=== PATIENT | male | born 1985 | race Caucasian/White ===

== ENCOUNTER 2018-04-05 12:43 | Emergency (ER) | payer MEDICAID ==
--- NOTE | 2018-04-05 13:24 | EDPHY ---
H & P Stated Complaint: Pt had transient chest palpitation [employer], gone, c/o bilat hand tingle Time Seen by Provider: 04/05/18 13:01 HPI/ROS: CHIEF COMPLAINT: Palpitations and tingling HISTORY OF PRESENT ILLNESS: Patient is a 32-year-old man with no significant medical history who presents to the emergency department about 2-3 hours after he had a very brief episode of palpitations. He is not very concerned about them. No shortness of breath. No nausea. No diaphoresis. Whose while he was at rest. He then however began to develop paresthesias in both hands and in his left 2nd toe. These seem to fluctuate. They are now gone. No trauma. He did have an upper respiratory tract infection last week. This is since resolved. No fevers. No cough or shortness of breath. He is a smoker. No recent travel. No leg pain or swelling. Palpitations are not pleuritic and do not change with movement. Severity: Moderate Modifying factors: Resolved spontaneously REVIEW OF SYSTEMS: Constitutional: denies: chills, fever, recent illness, recent injury EENTM: denies: blurred vision, double vision, nose congestion Respiratory: denies: cough, shortness of breath Cardiac: denies: chest pain, irregular heart rate, lightheadedness, palpitations Gastrointestinal/Abdominal: denies: abdominal pain, diarrhea, nausea, vomiting, blood streaked stools Genitourinary: denies: dysuria, frequency, hematuria, pain Musculoskeletal: denies: joint pain, muscle pain Skin: denies: lesions, rash, jaundice, bruising Neurological: denies: headache, numbness, paresthesia, tingling, dizziness, weakness Hematologic/Lymphatic: denies: blood clots, easy bleeding, easy bruising Immunologic/allergic: denies: HIV/AIDS, transplant 10 systems reviewed and negative except as noted EXAM: GENERAL: Well-appearing, well-nourished and in no acute distress. HEAD: Atraumatic, normocephalic. EYES: Pupils equal round and reactive to light, extraocular movements intact, sclera anicteric, conjunctiva are normal. ENT: TMs normal, nares patent, oropharynx clear without exudates. Moist mucous membranes. NECK: Normal range of motion, supple without lymphadenopathy or JVD. LUNGS: Breath sounds clear to auscultation bilaterally and equal. No wheezes rales or rhonchi. HEART: Regular rate and rhythm without murmurs, rubs or gallops. ABDOMEN: Soft, nontender, normoactive bowel sounds. No guarding, no rebound. No masses appreciated. BACK: No CVA tenderness, no spinal tenderness, step-offs or deformities EXTREMITIES: Normal range of motion, no pitting or edema. No clubbing or cyanosis. NEUROLOGICAL: Cranial nerves II through XII grossly intact. Normal speech, normal gait. 5/5 strength, normal movement in all extremities, normal sensation , normal reflexes PSYCH: Normal mood, normal affect. SKIN: Warm, dry, normal turgor, no visible rashes or lesions. Source: Patient Exam Limitations: No limitations - Personal History Current Tetanus/Diphtheria Vaccine: Yes - Medical/Surgical History Hx Asthma: No Hx Chronic Respiratory Disease: No Hx Diabetes: No Hx Cardiac Disease: No Hx Renal Disease: No Hx Cirrhosis: No Hx Alcoholism: No Hx HIV/AIDS: No Hx Splenectomy or Spleen Trauma: No Other PMH: Anxiety, ortho Sx. - Social History Smoking Status: Heavy smoker Constitutional: Initial Vital Signs Temperature (C) 36.4 C 04/05/18 12:44 Heart Rate 105 H 04/05/18 12:44 Respiratory Rate 18 04/05/18 12:44 Blood Pressure 151/104 H 04/05/18 12:44 O2 Sat (%) 97 04/05/18 12:44 O2 Delivery Mode Room Air Allergies/Adverse Reactions: No Known Allergies Allergy (Unverified 04/05/18 12:44) Medical Decision Making - Diagnostics EKG Interpretation: An EKG obtained and was read and documented in trace view. Please see trace view for full reading and report. Sinus rhythm. Nonspecific T-wave abnormalities inferior leads, no acute ischemic changes ED Course/Re-evaluation: The patient has very minimal risk factors however he is a smoker. We discussed his EKG which is reassuring. His paresthesias are likely more due to anxiety. I told him that his symptoms are most likely due to anxiety but that there is certainly a small chance it could be a cardiac or electrolyte abnormality or PE. He initially told me that he would like to complete a workup because he recently had a friend of a friend who of a "clogged artery" at the age of 34. He states that he does not want to wake up dad. We agreed to perform lab work and x-ray however he then began asking about the cost and told me that he is uninsured. [facility] and being seen in the emergency department. After several repeat discussions between the nurse and myself the patient the patient ultimately decided not to perform any further testing. He feels reassured and would rather return home with his sister. We discussed indications for returning. Differential Diagnosis: Partial list of the Differential diagnosis considered include but were not limited to; anxiety, arrhythmia, palpitations, caffeine reaction and although unlikely based on the history and physical exam, I also considered acute coronary disease PE, infection, pericarditis. I discussed these differential diagnoses and the plan with the patient as well as the usual and expected course. The patient understands that the diagnosis is provisional and that in medicine we are not always correct and that further workup is often warranted. Usual and customary warnings were given. All of the patient's questions were answered. The patient was instructed to return to the emergency department should the symptoms at all worsen or return, otherwise to followup with the physician as we discussed. Departure - Departure Disposition: Home, Routine, Self-Care Clinical Impression: Palpitations, Paresthesia, Anxiety Condition: Fair Instructions: Heart Palpitations (ED), Paresthesia (ED) Referrals: NONE *PRIMARY CARE P,. [Primary Care Provider] - As per Instructions [facility],. [Clinic] - As per Instructions Ailyn Hall MD [Medical Doctor] - 3-4 days, if not improved
--- NOTE | 2018-04-05 13:25 | CPEKG ---
Test Reason : OPEN Blood Pressure : / mmHG Vent. Rate : 077 BPM Atrial Rate : 077 BPM P-R Int : 113 ms QRS Dur : 099 ms QT Int : 407 ms P-R-T Axes : 043 055 -17 degrees QTc Int : 461 ms Sinus rhythm Borderline T abnormalities, inferior leads Confirmed by Anthony Perez ([id number]) on 04/05/2018 1:25:06 PM Referred By: Confirmed By:Anthony Perez
[2018-04-05 13:28] VITALS: BP 155/90
== END 2018-04-05 14:12 | disposition home or self-care (01) ==
DX: R00.2 Palpitations (principal); R20.2 Paresthesia of skin; F41.9 Anxiety disorder, unspecified; F17.200 Nicotine dependence, unspecified, uncomplicated